=== PATIENT | male | born 1965 | race Caucasian/White ===

== ENCOUNTER → 2017-08-09 | Outpatient (CLI) | payer BC ==
[2017-08-09 11:48] LABS: BUN 13 mg/dL (7-18)
[2017-08-09 12:03] LABS: GFR (ESTIMATED) 89 ML/MIN (>60)
== END ==
LOC: LAB 09:24
PROVIDERS: Internal Medicine Adolescent Medicine
DX: E78.5 Hyperlipidemia, unspecified (principal); E11.9 Type 2 diabetes mellitus without complications